=== PATIENT | female | born 1940 | race Caucasian/White ===

== ENCOUNTER 2023-08-31 16:53 | Inpatient (IN) | payer MEDICARE, MEDICAID, SELFPAY ==
[2023-08-31] VITALS (9 sets, daily range): BP systolic 105–156; BP diastolic 48–66; BMI 30.1
--- NOTE | 2023-08-31 12:54 | ED.GENMED ---
History of Present Illness
General
Chief Complaint: Abnormal Lab Value
Source: patient
Exam Limitations: none
Time Seen by Provider: 08/31/23 12:44
Nursing documentation reviewed up to this point in time: agreed with
Travel History
Have you had any contact with someone who has COVID-19?: No
Do you have any symptoms of coronavirus? Fever > 100 degrees, chills, cough, shortness of breath, sore throat, loss of taste or smell, muscle aches, or headache?: No
History of Present Illness
History of Present Illness:
Patient is an 83-year-old female with history of hypertension pka-bqfxrup-yecbmemlb diabetes migraines presents to the ER for evaluation of low sodium. 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
labs and called them last night stating her sodium was low and to come to the ER. They did not get this until today. Patient has been since for the past 3 days.
She is not on a diuretic. Denies any lower extremity swelling. She denies any chest pain shortness of breath. She follows with nephrology for labile blood pressure. Denies any urinary frequency urgency.
Review of Systems
Review of Systems
Allergies reviewed?: Yes
All Other Systems: ROS reviewed and negative except as documented in HPI and ROS
Constitutional: Reports no symptoms; Denies fever, fatigue or chills
Musculoskeletal: Reports no symptoms
Skin: Reports no symptoms
Neurological: Reports no symptoms
Psychiatric: Reports no symptoms
Phy Exam
General Physical Exam
General Presentation: no apparent distress
General age: appears stated age
General Skin: warm and dry
General Habitus: elderly
General Mental: alert
General Hydration: appears well hydrated
Cardiovascular Exam
Cardiovascular Exam: systolic murmur
Pulmonary Exam
Pulmonary Exam: lungs clear and no respiratory distress
Neurological Exam
Neurological Exam: alert
Musculoskeletal Exam
Musculoskeletal Exam: full ROM and other (no l/e swelling )
Skin Exam
Skin Exam: normal color and warm/dry
Psychiatric Exam
Psychiatric Exam: normal mood/affect
Course
Orders/Labs/Results
Orders:
Orders
08/31/23 12:54
IV Insert/Care/Rem.- Treatment PRN
08/31/23 13:01
Complete Blood Count/With Diff Urgent
Comprehensive Metabolic Panel Urgent
Osmolality, Random Urine Urgent
Date Specimen was Collected: 08/31/23
Time Specimen was Collected: 12:57
UA Reflex to Culture [Urinalysis Reflex To Culture] Urgent
Date Specimen was Collected: 08/31/23
Time Specimen was Collected: 12:57
Urine Microscopic Reflex Cult Urgent
Urine Sodium Urgent
Date Specimen was Collected: 08/31/23
Time Specimen was Collected: 12:57
Urine Culture Urgent
ADARSH Source: U
Specimen Description:
Date Specimen was Collected: 08/31/23
Time Specimen was Collected: 12:57
08/31/23 14:28
3% Sodium Chloride 250 ml [Sodium Chloride 3%] 250 ml IV ONCE
08/31/23 14:35
Electrocardiogram (*1) Stat
Reason for Study: Other
Other Reason for Exam: chest pain
EKG- Treatment ONCE
08/31/23 14:54
Add On- LAB Urgent
Tests Added?: Osmolality Random, Urine Sodium
08/31/23 Dinner
Regular
At Your Request: Limited Participation
Comment: upper sorbian speeaking
08/31/23 15:52
Admit/Transfer Patient As Directed
Co-Sign Provider:
Level of Care: Inpatient admission
Assign to:: Telemetry
Physician / Group: geronimo diallo
Diagnosis: Symptomatic hyponatremia
Reason for Telemetry: Arrhythmia
Date to Stop Telemetry: 09/03/23
Time to Stop Telemetry: 11:00
Reason for Hospitalization: Symptomatic hyponatremia
Expected length of stay greater than two midnights?: Yes
ELOS- Estimated Length of Stay in days: 3
I certify the patient meets the requirements for IP care: Yes
Code Status As Directed
Resuscitation Status: Full Code
08/31/23 16:10
CT Head W/o Iv Contrast Urgent
Comment:
Reason For Exam: hyponatremia headache
08/31/23 19:06
Acetaminophen [Tylenol] 650 mg PO Q4HPRN PRN
Enoxaparin Sodium [Lovenox] 40 mg SC QPM
08/31/23 19:06
Activity As Directed
Activity Level: With Assistance
Intake/ Output As Directed
Frequency: Per unit guidelines
Vital Signs As Directed
Frequency: Per unit guidelines
Weight As Directed
Frequency: Daily
Ot Eval And Treat Routine
Pt Eval And Treat Routine
Activity Level: As Tolerated
DX Deep Vein Thrombosis Video Routine
08/31/23 21:55
BMP [Basic Metabolic Panel] Urgent
08/31/23 22:00
Latanoprost [Xalatan Ophthalmic Solution] 1 drop BOTH EYES HS
09/01/23 05:36
Basic Metabolic Panel IN AM
Complete Blood Count/With Diff IN AM
09/01/23 08:00
Bisoprolol Fumarate [Zebeta] 5 mg PO DAILY
Ezetimibe [Zetia] 10 mg PO DAILY
Olmesartan Medoxomil [Benicar] 40 mg PO DAILY
09/02/23 07:10
Basic Metabolic Panel IN AM
Complete Blood Count/With Diff IN AM
09/03/23 11:00
DC Protocol for Telemetry ONCE
Abnormal Lab Results
08/31/23
13:01
RBC 4.16 L 10^6/uL
(4.20-5.40)
Hct 35.5 L %
(37.0-47.0)
MCH 31.7 H pg
(27.0-31.0)
MCHC 37.2 H g/dL
(33.0-37.0)
Absolute Monos (auto) 1.0 H 10^3/uL
(0.1-0.6)
Monocytes % 11.5 H %
(1.7-9.3)
Sodium 121 L mmol/L
(135-145)
Chloride 84 L mmol/L
(98-107)
BUN 29 H mg/dl
(7-17)
Glucose 115 H mg/dl
(70-99)
Leukocyte Esterase Rfl 2+ A
(Negative)
Urine Bacteria (Reflex) Few A
(Negative)
Urine Sodium 23 L mmol/L
(30-90)
08/31/23 13:01
08/31/23 13:01
Vital Signs
Initial and Last Documented VS:
Initial Vital Signs
Temp Pulse Resp BP Pulse Ox
98.4 F 61 18 107/54 98
08/31/23 11:42 08/31/23 11:42 08/31/23 11:42 08/31/23 11:42 08/31/23 11:42
Last Documented Vital Signs
Temp Pulse Resp BP Pulse Ox
97.7 F 57 16 145/55 99
09/02/23 07:38 09/02/23 07:38 09/02/23 07:38 09/02/23 07:38 09/02/23 07:38
MDM/Problems Addressed
Differential Diagnosis Includes:
Not limited to hyponatremia electrolyte abnormality
MDM/Problems Addressed:
Patient is an 83-year-old female who is followed by nephrology at [facility] for hypertension had outpatient labs done and was found to have a low sodium. Patient complains of weakness for the past several days as per daughter who is translating.
Patient is no other complaints. Sodium here is 121. Urine studies added on. Case discussed with nephrology Dr. Callahan who does recommend hypertonic saline. Patient to be admitted.
*Pulse Oximetry
Patient hypoxic: no
*EKG
Interpreted by ED Provider?: Yes
Heart Rate: 63
Rate: normal
Rhythm: sinus
Ischemia: no ischemia
*Critical Care Note
Total Time (30-74mins, 75-104mins- exclusive of procedures): Not Applicable
Patient Management
Discussion with other providers: Sweep Press Operator (nephrology, DR Callahan )
ED Attending Note
-
Portions of this chart may have been created with voice recognition software.� Occasional wrong word or��sound alike� substitutions may have occurred due to the inherent limitations of voice recognition software.
Discharge Plan
Departure
Patient Disposition: Admit
Date of Disposition: 08/31/23
Time of Disposition: 14:37
Admit to: IMU
Admit to doctor: hospitalist
Presentation/result/management discussed w/ accepting MD/DO: Hospitalist
Patient with high blood pressure during this ER visit?: No
Condition: Fair
Covid-19: Not Applicable
Discharge Problem:
Acute hyponatremia
Interventions
Interventions:
*Risk Screen - Suicide Last Done: 08/31/23 11:42
*General Assessment Last Done: 08/31/23 12:55
*Neglect/Abuse Screening Last Done: 08/31/23 11:42
*Nursing Disposition Last Done: 08/31/23 18:57
Discharge Date and Time
Discharge Date/Time: 08/31/23 18:59
[2023-08-31 13:10] LABS: % Basophils 0.9 % (0-2); % Eosinophils 1.1 % (0-6); % Immature Granulocytes 0.2 % (0-0.5); % Lymphocytes 30.6 % (20.5-51.1); % Monocytes 11.5 % (1.7-9.3); % Neutrophils 55.7 % (42.2-75.2); Absolute Basophils 0.1 10^3/uL (0-0.2); Absolute Eosinophils 0.1 10^3/uL (0-0.7); Absolute Lymphocytes 2.7 10^3/uL (1.2-3.4); Hematocrit 35.5 % (37.0-47.0); Hemoglobin 13.2 g/dL (12.0-16.0); Mean Corp Hgb Conc. 37.2 g/dL (33.0-37.0); Mean Corpuscular Hgb 31.7 pg (27.0-31.0); Mean Corpuscular Volume 85.3 fL (81.0-99.0); Mean Platelet Volume 9.1 fL (7.4-10.4); Nucleated Red Blood Cells % 0 %; Platelet Count 279 10^3/uL (130-400); Red Blood Cell Count 4.16 10^6/uL (4.20-5.40); White Blood Cell Count 8.9 10^3/uL (4.8-10.8)
[2023-08-31 13:12] LABS: Urine Albumin Negative (Neg - Trace); Urine Bilirubin Negative (Negative); Urine Character Clear (Clear); Urine Color Yellow; Urine Glucose Negative (Negative); Urine Ketone Negative (Negative); Urine Leukocyte 2+ (Negative); Urine Nitrite Negative (Negative); Urine Occult Blood Negative (Negative); Urine Specific Gravity 1.015 (<1.030); Urine Urobilinogen Negative (Neg - 1+)
[2023-08-31 13:22] LABS: ALT (SGPT) 11 U/L (0-35); AST (SGOT) 25 U/L (14-36); Albumin 4.5 g/dl (3.5-5.0); Alkaline Phosphatase 101 U/L (38-126); Blood Urea Nitrogen 29 mg/dl (7-17); Calcium 9.8 mg/dl (8.4-10.2); Carbon Dioxide 25 mmol/L (22-30); Chloride 84 mmol/L (98-107); Estimated Creatinine Clearance 43 ml/min; Glucose 115 mg/dl (70-99); Potassium 3.8 mmol/L (3.5-5.1); Sodium 121 mmol/L (135-145); Total Bilirubin 0.7 mg/dl (0.2-1.3); Total Protein 7.3 g/dl (6.3-8.2); eGFR > 60.00
[2023-08-31 13:35] LABS: Urine Mucus Few; Urine Squamous Cell 26-30 /LPF (Few)
[2023-08-31 13:37] LABS: Urine Bacteria Few (Negative); Urine Red Blood Cell 0-2 /HPF (0-2)
--- NOTE | 2023-08-31 14:56 | W.CON.NEPH ---
Consultation
-
Date/Time Consultation Requested: 08/31/2023 2:22PM
Date/Time Consultation Performed: 08/31/2023 4:30PM
Requesting Provider: Sol Ospina
Performing Provider: Martha Callahan
Reason for Consultation: hyponatremia
Medical History
-
Chief Complaint: hyponatremia
History of Present Illness:
Ms. Castro is an 83YOF with PMH of HTN, prediabetes, DLD who presents to the hospital for hyponatremia found on outpatient labs.
She was instructed to get labs on Friday, Na resulted at 124. She is 121 in our ED.
It appears that the patient has been struggling with labile blood pressures recently. She does see a air motor repairer at [facility], unclear of what her name is. Her current regimen is olmesartan-HCTZ, bisoprolol and clonidine patch was prescribed but not
initiated. She has never heard that she has low sodium previously. She struggles with migraines, takes excedrin for that, trying to wean off as able. She is taking tylenol. No heavy NSAID usage. States that she was eating a bit less because of her
tooth crown that was dislodged, now replaced and eating is back to normal. Drinks about 1L of water/day but also has some tea as well.
Endorses weakness over the past few days.
Denies nausea, vomiting, diarrhea, recent illnesses.
Past Medical History
HTN
DLD
pre-diabetes
Past Medical History: Other
Past Surgical History: None
Social History
Tobacco: Non-Smoker
Alcohol: Occasional
Drug: None
Living: With Family
Family History
Family History: Not Pertinent
Allergies / Home Medications
Allergy/AdvReac Type Severity Reaction Status Date / Time
No Known Allergies Allergy Unverified 08/31/23 11:45
�Medication �Instructions �Recorded �Confirmed �Type
bisoprolol fumarate 5 mg tablet 5 mg PO DAILY 08/31/23 08/31/23 History
ezetimibe 10 mg tablet 10 mg PO DAILY 08/31/23 08/31/23 History
latanoprost 0.005 % eye drops 1 drp BOTH EYES HS 08/31/23 08/31/23 History
magnesium 1 tab PO HS 08/31/23 08/31/23 History
olmesartan 40 1 tab PO HS 08/31/23 08/31/23 History
mg-hydrochlorothiazide 25 mg tablet
Review of Systems
-
History Source: Patient and Family
All other systems: Negative unless noted
Constitutional: Fatigue
Respiratory: Cough (persistent, not new)
Neurological: Weakness
Physical Exam
Vital Signs
Vital Signs
Temp Pulse Resp BP Pulse Ox
98.4 F 61 15 105/62 96
08/31/23 11:42 08/31/23 13:30 08/31/23 13:30 08/31/23 13:00 08/31/23 13:30
Lab Results
WBC 8.9 10^3/uL (4.8-10.8) 08/31/23 13:01
RBC 4.16 10^6/uL (4.20-5.40) L 08/31/23 13:01
Hgb 13.2 g/dL (12.0-16.0) 08/31/23 13:01
Hct 35.5 % (37.0-47.0) L 08/31/23 13:01
Plt Count 279 10^3/uL (130-400) 08/31/23 13:01
Sodium 121 mmol/L (135-145) L 08/31/23 13:01
Potassium 3.8 mmol/L (3.5-5.1) 08/31/23 13:01
Chloride 84 mmol/L (98-107) L 08/31/23 13:01
Carbon Dioxide 25 mmol/L (22-30) 08/31/23 13:01
BUN 29 mg/dl (7-17) H 08/31/23 13:
Creatinine 0.8 mg/dL (0.6-1.0) 08/31/23 13:
eGFR > 60.00 08/31/23 13:
Glucose 115 mg/dl (70-99) H 08/31/23 13:
Calcium 9.8 mg/dl (8.4-10.2) 08/31/23 13:
Albumin 4.5 g/dl (3.5-5.0) 08/31/23 13:
Physical Exam
General: AOx3, No Distress and Nontoxic
HEENT: PERRL, EOMI, Anicteric, Conjunctivae Clear, Ear/Nose Intact and Hearing Normal
Respiratory: Clear
Cardiac: S1/S2, Regular Rate/Rhythm, Murmur and No Edema
Breast: Deferred by me
Abdomen: Soft, Nontender, Nondistended, Normal Bowel Sounds and No Hepatosplenomegaly
Rectal: Deferred by Provider
Genito-urinary: No Costovertebral Tender
Musculoskeletal: No Clubbing, No Cyanosis and No Edema
Skin: No Rash, Warm, Dry, No Clubbing and No Bruising
Neuro: Nonfocal/Grossly Intact
Psych: Mood/afflect pleasant and Insight/judgement good
Data Reviewed
-
Radiology: Other (no imaging obtained)
Labs: Labs Reviewed by me, Discussed with Physician and Discussed with Family
Old Records: Reviewed
Assessment/Plan
-
Assessment:
hyponatremia
migraines
hypertension, labile
DLD
Plan:
- hyponatremia workup in progress. ddx: SIADH +/- medication induced
- initiate the patient on 3% saline at 30cc/hr. goal sodium at 127-129 by tomorrow afternoon
- please obtain urine sodium and urine osm
- avoid further excedrin
- hold HCTZ for blood pressure
- monitor blood pressures while she is here. i am not sure if her cuff at home is accurate. if blood pressures are labile, could consider secondary hypertension workup.
[2023-08-31] MEDS: SODIUM CHLORIDE 3% 250 IV (14:58)
[2023-08-31 15:19] LABS: Osmolality Urine 443 mOsm/kg (300-900)
[2023-08-31 15:28] LABS: Urine Sodium 23 mmol/L (30-90)
--- NOTE | 2023-08-31 15:32 | HPS.HSE ---
Addendum entered and electronically signed by Viji Levin MD 08/31/23 16:35:
pt seen and examined independently--agree with GEOSCIENCES ASSOCIATE PROFESSOR note
GENERAL: well developed, well nourished, female in no apparent distress
HEENT: NC/AT
HEART: regular rate and rhythm, +S1, +S2
LUNGS : clear to auscultation bilaterally
ABDOM: soft, nontender, nondistended, + bowel sounds
EXT: no cyanosis, clubbing, or edema
NEUROLOGIC: grossly intact--speaks Croatian
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
urine Osmo--Hold Excedrin prn--Hold HCTZ--Follow BMP will check at 10 PM and a.m.
Renal insuff ? 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
HTN-benign--Hold HCTZ due to hyponatremia--Continue olmesartan 40 mg , bisoprolol 5 mg daily with hold parameters--Patient follows with nephrology at [facility] for hypertension management
HLD-Continue ezetimibe 10 mg daily
Migraine history--Prior daily headaches now currently 3-4 times a week after Botox shots--Hold Excedrin as needed--Getting Botox x 1 year last dose was July 2023--Continue Tylenol as needed
DVT prophylaxis--Subcu Lovenox
Code status --Full code
Original Note:
Family Physician
-
Family Physician: Reji Collins
Chief Complaint
-
Weakness x 3 days
History of Present Illness
83-year-old Croatian-speaking female with her daughter who is at bedside translating who states for the past 3 days she has been complaining of weakness and labile blood pressure with systolic as low as 109 and as high as 158. She had labs ordered
by her solid glass rod dowel machine operator at [facility] and was called today with low sodium and advised to come to the emergency room. Her sodium was noted to be 121. She has been taking hydrochlorothiazide for her blood pressure and occasional as needed
Excedrin for migraines. She drinks approximately 1 L of fluids a day. Her daughter Morena reports her mother feels off balance with her chronic headaches, but denies blurred vision, nausea, vomiting, diarrhea, abdominal pain, chest pain,
palpitations, shortness of breath, urinary symptoms.
PMH HTN, prediabetes, migraines treated with Botox for the past year.
Medical History
Past Medical History
Past Medical History: Reports Other
Additional Past Medical History:
HTN,
prediabetes
migraines treated with Botox for the past yea
Past Surgical History: Reports Other
Additional Past Surgical History:
Right knee replacement
Social History
Tobacco: Non-smoker
Alcohol: None
Drug: None
Personal: Single
Living: With Family
Employment: Retired
Family History
Family History: Not pertinent
Allergies / Home Medications
Allergies reflects when Allergies were last updated in [facility].
Home Medications with original date entered in [facility]
Allergy/Medication List:
Allergies
Allergy/AdvReac Type Severity Reaction Status Date / Time
No Known Allergies Allergy Unverified 08/31/23 11:45
Home Medications
Excedrin Migraine 1 tab PO DAILY PRN migraine 08/31/23
bisoprolol fumarate 5 mg tablet 5 mg PO DAILY 08/31/23
ezetimibe 10 mg tablet 10 mg PO DAILY 08/31/23
latanoprost 0.005 % eye drops 1 drp BOTH EYES HS 08/31/23
magnesium 1 tab PO HS 08/31/23
olmesartan 40 mg-hydrochlorothiazide 25 mg tablet 1 tab PO HS 08/31/23
Review of Systems
-
History Source: Patient and Family (daughter Morena)
A 12 point ROS was completed and negative except as noted: Yes
Constitutional: Denies Fever, Fatigue or Chills
EENT: Denies Sore Throat or Runny Nose
Respiratory: Denies Cough or Trouble Breathing
Cardiac: Denies Chest Pain, Diaphoresis, Palpitations or Syncope
Abdomen/GI: Denies Abdominal Pain, Nausea, Vomiting, Diarrhea, Constipated, Bloody Stools or Black Stools
: Denies Dysuria, Frequency, Flank Pain, Incontinence, Difficulty Voiding or Urgency
Musculoskeletal: Denies Joint Pain or Edema
Skin: Denies Itching or Rash
Neurological: Reports Headache and Other (Daughter reports feels off balance); Denies Dizzy, Weakness or Numbness
Endocrine: Reports No Symptoms
Hematologic/Lymphatic: Reports No Symptoms
Psych: Reports Calm
Physical Exam
Vital Signs
Vital Signs
Temp Pulse Resp BP Pulse Ox
98.4 F 63 17 156/62 95
08/31/23 11:42 08/31/23 15:00 08/31/23 15:00 08/31/23 15:00 08/31/23 15:00
Physical Exam
General: Comfortable and Conversant; No Pain, Fever or Chills
HEENT: NormoCephalic, Anicteric, Moist mucous membranes, PERRLA, [place] Conjunctivae and No Ptosis
Respiratory: Clear; No Wheezes, Rales or Rhonchi
Cardiac: S1/S2 and Regular Rhythm; No Murmur, Rub, Gallop or Peripheral Edema
GI: Soft, Non Tender, Non Distended, Normal Bowel Sounds and No Hepatosplenomegaly
Rectal: Deferred by Provider
Genito-urinary: Deferred by me
Musculoskeletal: No Clubbing, No Cyanosis and No Edema
Skin: Warm and Dry; No Rash
Neuro: AO x 3 (Per daughter at bedside translating), No Motor Deficits, Nonfocal/grossly intact and No Sensory Deficits; No Slurred Speech, Facial Droop or Tremors
Psych: Calm
Laboratory Results
-
08/31/23 13:01
08/31/23 13:01
Laboratory Results
Total Bilirubin 0.7 mg/dl (0.2-1.3) 08/31/23 13:01
AST 25 U/L (14-36) 08/31/23 13:01
ALT 11 U/L (0-35) 08/31/23 13:01
Alkaline Phosphatase 101 U/L (38-126) 08/31/23 13:01
Data Reviewed
-
Lab Data: Labs Reviewed by me
Impression/Plan
-
Impression/plan:
Admit to telemetry
#Acute hyponatremia concern for SIADH/medication induced
NA 121
-Consult nephrology seen by Dr. CONROY at bedside
-Check urine NA, urine Osmo
-3% saline at 30 cc goal NA 127�129 by tomorrow afternoon
-Hold Excedrin prn
-Hold HCTZ
-Follow BMP will check at 10 PM and a.m.
-Check CT head
#Renal insuff ? CKD 3B
- creat 0.8 crcl 43-no prior baseline labs
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
#HTN-benign
-Hold HCTZ due to hyponatremia
-Monitor BP
-Continue olmesartan 40 mg , bisoprolol 5 mg daily with hold parameters
-Patient follows with nephrology at [facility] for hypertension management
#HLD
-Continue ezetimibe 10 mg daily
#Migraine history
Prior daily headaches now currently 3-4 times a week after Botox shots
-Hold Excedrin as needed
-Getting Botox x 1 year last dose was July 2023
-Continue Tylenol as needed
DVT prophylaxis
Subcu Lovenox
Full code
--- NOTE | 2023-08-31 19:10 | PTCARENOTE ---
Received pt from ED via stretcher. Pt ambulated to bed x1. Daughter at bedside and assisted with admission questions. Pt primarily Bahraini speaking. AAOx3. VSS. Assessed and oriented to room. Pt verbalized understanding of call smith. Call smith
within close reach. Will continue to monitor.
[2023-08-31] MEDS: LOVENOX 40 MG SC (19:53)
[2023-08-31] MEDS: XALATAN OPHTHALMIC SOLUTION 1 DROP BOTH EYES (21:51)
[2023-08-31 22:24] LABS: Blood Urea Nitrogen 21 mg/dl (7-17); Carbon Dioxide 22 mmol/L (22-30); Chloride 98 mmol/L (98-107); Estimated Creatinine Clearance 49 ml/min; Glucose 111 mg/dl (70-99); Potassium 3.1 mmol/L (3.5-5.1); Sodium 129 mmol/L (135-145); eGFR > 60.00
[2023-09-01] VITALS (8 sets, daily range): BP systolic 129–176; BP diastolic 42–79; PULSE 56–62; O2SAT 97
[2023-09-01 06:55] LABS: % Eosinophils 3.3 % (0-6); % Immature Granulocytes 0.3 % (0-0.5); % Lymphocytes 38.4 % (20.5-51.1); % Monocytes 13.1 % (1.7-9.3); % Neutrophils 43.9 % (42.2-75.2); Absolute Basophils 0.1 10^3/uL (0-0.2); Absolute Eosinophils 0.2 10^3/uL (0-0.7); Absolute Lymphocytes 2.4 10^3/uL (1.2-3.4); Absolute Monocytes 0.8 10^3/uL (0.1-0.6); Absolute Neutrophils 2.7 10^3/uL (1.4-6.5); Hemoglobin 12.2 g/dL (12.0-16.0); Mean Corp Hgb Conc. 35.9 g/dL (33.0-37.0); Mean Corpuscular Hgb 31.6 pg (27.0-31.0); Mean Corpuscular Volume 88.1 fL (81.0-99.0); Mean Platelet Volume 9.5 fL (7.4-10.4); Nucleated Red Blood Cells % 0 %; Platelet Count 258 10^3/uL (130-400); Red Blood Cell Count 3.86 10^6/uL (4.20-5.40); Red Cell Dist. Width 13.2 % (11.5-14.5); White Blood Cell Count 6.1 10^3/uL (4.8-10.8)
[2023-09-01 07:43] LABS: Blood Urea Nitrogen 21 mg/dl (7-17); Calcium 9.5 mg/dl (8.4-10.2); Carbon Dioxide 23 mmol/L (22-30); Chloride 93 mmol/L (98-107); Estimated Creatinine Clearance 49 ml/min; Glucose 106 mg/dl (70-99); Potassium 3.9 mmol/L (3.5-5.1); Sodium 126 mmol/L (135-145); eGFR > 60.00
[2023-09-01] MEDS: BENICAR 40 MG PO (07:49)
[2023-09-01] MEDS: ZETIA 10 MG PO (07:49)
[2023-09-01] MEDS: ZEBETA 5 MG PO (07:49)
--- NOTE | 2023-09-01 14:00 | W.PN.NEPH.PH ---
Today's Communication / Plan
-
3% saline again today
Assessment/Plan
-
Assessment:
hyponatremia
migraines
hypertension, labile
DLD
Plan:
- hyponatremia workup in progress. ddx: SIADH +/- medication induced
-sodium better to 129 but down to 126 this am
will resume 3% saline and follow sodium
U osmo is high at 443, U na low 23 some prerenal componenet too
- avoid further excedrin
BP stable on ARB, BB, hold HCTZ at d/c
d/w pt
-
-
Date of Service: September 01, 2023
CC / HPI / ROS
-
Chief Complaint:
hyponatremia
History of Present Illness:
sdoium better at 129 overnight but at 126 this am
bp stable, no fever
Review of Systems:
appetite is better
c/o dizziness but improving
Labs
-
Labs:
WBC 6.1 10^3/uL (4.8-10.8) 09/01/23 05:36
RBC 3.86 10^6/uL (4.20-5.40) L 09/01/23 05:36
Hgb 12.2 g/dL (12.0-16.0) 09/01/23 05:36
Hct 34.0 % (37.0-47.0) L 09/01/23 05:36
Plt Count 258 10^3/uL (130-400) 09/01/23 05:36
Sodium 126 mmol/L (135-145) L 09/01/23 05:36
Potassium 3.9 mmol/L (3.5-5.1) D 09/01/23 05:36
Chloride 93 mmol/L (98-107) L 09/01/23 05:36
Carbon Dioxide 23 mmol/L (22-30) 09/01/23 05:36
BUN 21 mg/dl (7-17) H 09/01/23 05:36
Creatinine 0.7 mg/dL (0.6-1.0) 09/01/23 05:36
eGFR > 60.00 09/01/23 05:36
Glucose 106 mg/dl (70-99) H 09/01/23 05:36
Calcium 9.5 mg/dl (8.4-10.2) 09/01/23 05:36
Albumin 4.5 g/dl (3.5-5.0) 08/31/23 13:01
Physical Exam
-
Vital Signs:
Vital Signs
Temp Pulse Resp BP Pulse Ox
97.8 F 59 18 135/54 99
09/01/23 11:00 09/01/23 11:00 09/01/23 11:00 09/01/23 11:00 09/01/23 11:00
Cardiovascular:: Regular rate and rhythm
Respiratory:: Bilateral: CTA
Lung Excursion:: Normal
Abdomen:: Nontender and Soft
Extremity Edema:: None: Bilateral:
Pimentel Catheter: No
[2023-09-01] MEDS: SODIUM CHLORIDE 3% 250 IV (14:56)
[2023-09-01 15:24] LABS: Sodium 124 mmol/L (135-145)
--- NOTE | 2023-09-01 15:37 | CM ---
Reviewed chart, spoke with patient's granddaughter to obtain information for assessment as patient speaks Lebanese. Patient's granddaughter stated that patient lives with her daughter in a two story home with one steps to enter. Her daughter assists
patient with all of her ADLs, personal care, dressing, bathing and patient uses a walker to assist with her ambulation.
Patient's daughter does all the cobol engineer, cooking, cleaning and laundry. She provides
transportation for patient to get to her appointments and she does all the shopping.
Patient has not had VN services. She was in a SNF in the past at [facility].
Patient has a prescription plan and uses, [facility] on [address]
Her PCP is, Zoila Collins.
Patient's granddaughter stated that patient's daughter has been taking care of patient for a long time and she can accommodate the scope of her needs. She relayed that she feels that patient would want to come home when medically stable for
discharge.
Plan: Case management will continue to follow and assist with discharge planning. Tentative plan is for home when medically cleared.
[2023-09-01] MEDS: LOVENOX 40 MG SC (17:40)
--- NOTE | 2023-09-01 18:05 | W.PN.HOSP.TC ---
Today's Communication/Plan
-
Hypertonic solution.
Assessment / Plan
Assessment / Plan
Impression:
Symptomatic hyponatremia sodium level 121 upon presentation.
Essential hypertension with reported labile blood pressure
Plan:
Symptomatic hyponatremia with sodium level 121 upon presentation
Suspect component of SIADH given relatively elevated urine osmolarity at 443 as well as prerenal with low sodium at 23.
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
Hold HCTZ
Sodium improved at 126, although dropped from 129 over the last night
Continue 3% solution. Follow serial BMP.
Essential hypertension
Reported labile BP.
Hold HCTZ.
Continue ARB/beta-qiana monitor blood pressure trend over the next 24 hours.
Discussed with patient's daughter at the bedside.
Anticipated Discharge: 24 - 48 hours
Subjective/Interval History
-
Date of Service: September 01, 2023
Objective Data
-
Labs:
Laboratory Results
09/01/23 09/01/23 09/01/23
05:36 14:42 22:03
WBC 6.1
Hgb 12.2
Hct 34.0 L
Plt Count 258
Sodium 126 L 124 L Pending
Potassium 3.9 D
Chloride 93 L
Carbon Dioxide 23
BUN 21 H
Creatinine 0.7
Glucose 106 H
Calcium 9.5
Vital Signs:
Vital Signs
Temp Pulse Resp BP Pulse Ox
97.7 F 62 18 144/50 96
09/01/23 15:00 09/01/23 15:00 09/01/23 15:00 09/01/23 15:00 09/01/23 15:00
I&O
08/31/23 09/01/23 09/02/23
06:59 06:59 06:59
Intake Total 480 / 480 630 / 630
Balance 480 / 480 630 / 630
Physical Exam
-
General: Well Developed and No Apparent Distress
HEENT: Normocephalic, Atraumatic and Moist Mucous Membranes
Respiratory: Clear to Auscultation
Cardiac: Regular Rhythm and S1/S2; Negative Murmur, Rub or Gallop
GI: Soft, Nontender, Nondistended and Normal Bowel Sounds; Negative Organomegaly
Rectal: Deferred by Provider
Musculoskeletal: No Clubbing, No Cyanosis and No Edema
Skin: Negative Rash
Neuro: Nonfocal/Grossly Intact
[2023-09-01] MEDS: XALATAN OPHTHALMIC SOLUTION 1 DROP BOTH EYES (21:25)
[2023-09-01 22:19] LABS: Sodium 127 mmol/L (135-145)
[2023-09-02 03:06] VITALS: BP 113/43
[2023-09-02 06:00] VITALS: BMI 27.3
[2023-09-02] MEDS: ZETIA 10 MG PO (07:22)
[2023-09-02] MEDS: BENICAR 40 MG PO (07:22)
[2023-09-02] MEDS: ZEBETA PO (07:23)
[2023-09-02 07:38] VITALS: BP 145/55
[2023-09-02 08:01] LABS: % Basophils 1.2 % (0-2); % Immature Granulocytes 0.3 % (0-0.5); % Neutrophils 39.5 % (42.2-75.2); Absolute Basophils 0.1 10^3/uL (0-0.2); Absolute Eosinophils 0.2 10^3/uL (0-0.7); Absolute Lymphocytes 2.5 10^3/uL (1.2-3.4); Absolute Monocytes 0.8 10^3/uL (0.1-0.6); Absolute Neutrophils 2.4 10^3/uL (1.4-6.5); Hematocrit 37.1 % (37.0-47.0); Hemoglobin 12.8 g/dL (12.0-16.0); Mean Corp Hgb Conc. 34.5 g/dL (33.0-37.0); Mean Corpuscular Hgb 31.1 pg (27.0-31.0); Mean Corpuscular Volume 90.3 fL (81.0-99.0); Mean Platelet Volume 9.3 fL (7.4-10.4); Nucleated Red Blood Cells % 0 %; Platelet Count 266 10^3/uL (130-400); Red Blood Cell Count 4.11 10^6/uL (4.20-5.40); Red Cell Dist. Width 13.3 % (11.5-14.5)
[2023-09-02 08:29] LABS: Blood Urea Nitrogen 15 mg/dl (7-17); Calcium 9.7 mg/dl (8.4-10.2); Carbon Dioxide 24 mmol/L (22-30); Chloride 95 mmol/L (98-107); Estimated Creatinine Clearance 54 ml/min; Glucose 136 mg/dl (70-99); Potassium 4.4 mmol/L (3.5-5.1); Sodium 130 mmol/L (135-145); eGFR > 60.00
[2023-09-02 11:07] VITALS: BP 159/50
--- NOTE | 2023-09-02 14:24 | W.PN.NEPH.PH ---
Today's Communication / Plan
-
see plan
Assessment/Plan
-
Assessment:
hyponatremia
migraines
hypertension, labile
DLD
Plan:
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
-sodium better to 130 with 3% saline
U osmo is high at 443, U na low 23 some prerenal componenet too
- avoid further excedrin
BP suboptimal on ARB, BB, hold HCTZ at d/c
BB dose titration limited by HR 50-60s
daughter reports had gum swelling with Amlodipine hence will start hydralazine
check sodium now if stable ok for d/c
BMP in 2days with PCP after d/c
would cont FR 48 ounces/day
d/w pt and family at bedside
she will follow nephro at [facility] [place]
-
-
Date of Service: September 02, 2023
CC / HPI / ROS
-
Chief Complaint:
hyponatremia
History of Present Illness:
sdoium better at 130 s/p 3% saline
bp high, no fever
Review of Systems:
appetite is better
no dizziness
no nv/. no cp or sob
Labs
-
Labs:
WBC 6.0 10^3/uL (4.8-10.8) 09/02/23 07:10
RBC 4.11 10^6/uL (4.20-5.40) L 09/02/23 07:10
Hgb 12.8 g/dL (12.0-16.0) 09/02/23 07:10
Hct 37.1 % (37.0-47.0) 09/02/23 07:10
Plt Count 266 10^3/uL (130-400) 09/02/23 07:10
Sodium 130 mmol/L (135-145) L 09/02/23 07:10
Potassium 4.4 mmol/L (3.5-5.1) 09/02/23 07:10
Chloride 95 mmol/L (98-107) L 09/02/23 07:10
Carbon Dioxide 24 mmol/L (22-30) 09/02/23 07:10
BUN 15 mg/dl (7-17) 09/02/23 07:10
Creatinine 0.6 mg/dL (0.6-1.0) 09/02/23 07:10
eGFR > 60.00 09/02/23 07:10
Glucose 136 mg/dl (70-99) H 09/02/23 07:10
Calcium 9.7 mg/dl (8.4-10.2) 09/02/23 07:10
Albumin 4.5 g/dl (3.5-5.0) 08/31/23 13:01
Physical Exam
-
Vital Signs:
Vital Signs
Temp Pulse Resp BP Pulse Ox
98.2 F 66 16 159/50 98
09/02/23 11:07 09/02/23 11:07 09/02/23 11:07 09/02/23 11:07 09/02/23 11:07
Cardiovascular:: Regular rate and rhythm
Respiratory:: Bilateral: CTA
Lung Excursion:: Normal
Abdomen:: Nontender and Soft
Extremity Edema:: None: Bilateral:
Pimentel Catheter: No
[2023-09-02 15:06] VITALS: BP 161/69
[2023-09-02 15:30] LABS: Sodium 127 mmol/L (135-145)
--- NOTE | 2023-09-02 16:34 | W.PN.HOSP.TC ---
Today's Communication/Plan
-
[place]
Continue free water restriction
Monitor BP trend
Assessment / Plan
Assessment / Plan
Impression:
Symptomatic hyponatremia sodium level 121 upon presentation.
Essential hypertension with reported labile blood pressure
Plan:
Symptomatic hyponatremia with sodium level 121 upon presentation
Suspect component of SIADH given relatively elevated urine osmolarity at 443 as well as prerenal with low sodium at 23.
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
Hold HCTZ
Status post 3% solution.
Sodium improved 130 and fluctuated down to 127
Consider Samsca
Continue free water restriction
Essential hypertension
Reported labile BP.
Hold HCTZ.
Continue ARB/beta-qiana monitor blood pressure trend over the next 24 hours.
Add low-dose of hydralazine
Discussed with patient's daughter at the bedside.
Anticipated Discharge: 24 - 48 hours
Subjective/Interval History
-
Date of Service: September 02, 2023
Objective Data
-
Labs:
Laboratory Results
09/02/23 09/02/23
07:10 15:08
WBC 6.0
Hgb 12.8
Hct 37.1
Plt Count 266
Sodium 130 L 127 L
Potassium 4.4
Chloride 95 L
Carbon Dioxide 24
BUN 15
Creatinine 0.6
Glucose 136 H
Calcium 9.7
Vital Signs:
Vital Signs
Temp Pulse Resp BP Pulse Ox
98.4 F 70 20 161/69 96
09/02/23 15:06 09/02/23 15:06 09/02/23 15:06 09/02/23 15:06 09/02/23 15:06
I&O
09/01/23 09/02/23 09/03/23
06:59 06:59 06:59
Intake Total 480 / 480 750 / 750
Balance 480 / 480 750 / 750
Physical Exam
-
General: Well Developed and No Apparent Distress
HEENT: Normocephalic, Atraumatic and Moist Mucous Membranes
Respiratory: Clear to Auscultation
Cardiac: Regular Rhythm and S1/S2; Negative Murmur, Rub or Gallop
GI: Soft, Nontender, Nondistended and Normal Bowel Sounds; Negative Organomegaly
Rectal: Deferred by Provider
Musculoskeletal: No Clubbing, No Cyanosis and No Edema
Skin: Negative Rash
Neuro: Nonfocal/Grossly Intact
[2023-09-02] MEDS: LOVENOX 40 MG SC (16:51)
[2023-09-02] MEDS: SAMSCA 15 MG PO (16:52)
[2023-09-02 19:00] VITALS: BP 179/74
[2023-09-02] MEDS: TYLENOL 650 MG PO (19:34)
[2023-09-02] MEDS: APRESOLINE 10 MG PO (19:35)
[2023-09-02] MEDS: XALATAN OPHTHALMIC SOLUTION 1 DROP BOTH EYES (20:41)
--- NOTE | 2023-09-02 22:01 | VATNOTE ---
pt has no no IV needs and does NOT want to re restuck for IV site due to telemetry parameters. Pt wishes honored and PCN aware.
[2023-09-02 23:00] VITALS: BP 128/59
[2023-09-03 03:00] VITALS: BP 120/49
[2023-09-03 06:00] VITALS: BMI 27.0
[2023-09-03 07:00] VITALS: BP 140/64
[2023-09-03] MEDS: APRESOLINE 10 MG PO (08:18)
[2023-09-03] MEDS: BENICAR 40 MG PO (08:18)
[2023-09-03] MEDS: ZETIA 10 MG PO (08:19)
[2023-09-03] MEDS: ZEBETA 5 MG PO (08:19)
[2023-09-03 08:30] LABS: Blood Urea Nitrogen 13 mg/dl (7-17); Calcium 10.2 mg/dl (8.4-10.2); Carbon Dioxide 27 mmol/L (22-30); Chloride 100 mmol/L (98-107); Estimated Creatinine Clearance 54 ml/min; Glucose 124 mg/dl (70-99); Sodium 135 mmol/L (135-145); eGFR > 60.00
[2023-09-03 11:00] VITALS: BP 140/58
--- NOTE | 2023-09-03 11:07 | W.PN.NEPH.PH ---
Today's Communication / Plan
-
no HCTZ
Assessment/Plan
-
Assessment:
hyponatremia
migraines
hypertension, labile
DLD
Plan:
BMP next week
f/u OP neph HUP
no HCTZ
continue hydralazine in its place
goal SBP ~140 given age
ok for dc from renal standpoint
-
-
Date of Service: September 03, 2023
CC / HPI / ROS
-
Chief Complaint:
hyponatremia
History of Present Illness:
sdoium better at 135
BP stable
K ok
Review of Systems:
appetite is better
no dizziness
no nv, no cp or sob
Labs
-
Labs:
WBC 6.0 10^3/uL (4.8-10.8) 09/02/23 07:10
RBC 4.11 10^6/uL (4.20-5.40) L 09/02/23 07:10
Hgb 12.8 g/dL (12.0-16.0) 09/02/23 07:10
Hct 37.1 % (37.0-47.0) 09/02/23 07:10
Plt Count 266 10^3/uL (130-400) 09/02/23 07:10
Sodium 135 mmol/L (135-145) D 09/03/23 07:08
Potassium 5.0 mmol/L (3.5-5.1) 09/03/23 07:08
Chloride 100 mmol/L (98-107) 09/03/23 07:08
Carbon Dioxide 27 mmol/L (22-30) 09/03/23 07:08
BUN 13 mg/dl (7-17) 09/03/23 07:08
Creatinine 0.6 mg/dL (0.6-1.0) 09/03/23 07:08
eGFR > 60.00 09/03/23 07:08
Glucose 124 mg/dl (70-99) H 09/03/23 07:08
Calcium 10.2 mg/dl (8.4-10.2) 09/03/23 07:08
Albumin 4.5 g/dl (3.5-5.0) 08/31/23 13:01
Physical Exam
-
Vital Signs:
Vital Signs
Temp Pulse Resp BP Pulse Ox
97.8 F 63 16 140/64 95
09/03/23 07:00 09/03/23 08:18 09/03/23 07:00 09/03/23 08:18 09/03/23 07:00
Cardiovascular:: Regular rate and rhythm
Respiratory:: Bilateral: Coarse
Lung Excursion:: Normal
Abdomen:: Nontender and Soft
Bowel Sounds:: Normal
Extremity Edema:: None: Bilateral:
[2023-09-03 12:07] VITALS: BP 142/52; BP 176/79; PULSE 56; PULSE 62; O2SAT 97
--- NOTE | 2023-09-03 14:07 | W.DS.TRANS ---
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
-
Discharge Instructions:
Discharge Diagnosis/Procedures Hyponatremia
Diet Regular
Blood Work BMP in one week
Instructions:
Stand-Alone Forms:
Changes to Home Medications: Yes
Discharge Medications:
DC Medications w/original date entered in [facility]
bisoprolol fumarate 5 mg tablet 5 mg PO DAILY Blood Pressure 08/31/23
ezetimibe 10 mg tablet 10 mg PO DAILY High Cholesterol 08/31/23
latanoprost 0.005 % eye drops 1 drp BOTH EYES HS Eye Condition 08/31/23
magnesium 1 tab PO HS Electrolyte Repletion 08/31/23
hydralazine 10 mg tablet 10 mg PO BID #60 tabs 09/03/23
olmesartan 20 mg tablet 40 mg (2 x 20 mg) PO DAILY #30 tabs 09/03/23
Home Medication Changes
HCTZ stopped
Hydralazine initiated
Pending Results: No
--- NOTE | 2023-09-03 14:54 | CM ---
Patient seen at bedside. Patient is for discharge today and does not understand sinhala. CM called to patient granddaughter, VM left for granddaughter regarding transportation, and IMM. CM will continue to follow for discharge planning needs.
Plan; home with family pending Confirmation of needs.
[2023-09-03 16:19] VITALS: BP 115/55
--- NOTE | 2023-09-03 17:35 | PTCARENOTE ---
this RN called the pts vikash Puckett and the pts vikash is on her way to pick the pt up, the pts vikash was notified that the pt will be in the discharge lounge in the main lobby, pathology specialist at the bedside going over discharge
instructions with this RN and Marely COLE
== END 2023-09-03 17:45 | disposition home or self-care (01) | DRG 645 ==
LOC: 3 WEST ACU 16:53
PROVIDERS: Clinical Nurse Specialist Family Health; Internal Medicine; Nurse Practitioner; ADMITTING PHYSICIAN Internal Medicine; ATTENDING PHYSICIAN Internal Medicine; EMERGENCY PHYSICIAN Emergency Medicine; FAMILY PHYSICIAN Internal Medicine; OTHER PHYSICIAN Student in an Organized Health Care Education/Training Program
DX: E22.2 Syndrome of inappropriate secretion of antidiuretic hormone (principal); E11.9 Type 2 diabetes mellitus without complications; I12.9 Hypertensive chronic kidney disease with stage 1 through stage 4 chronic kidney disease, or unspecified chronic kidney disease; N18.32 Chronic kidney disease, stage 3b; Z79.84 Long term (current) use of oral hypoglycemic drugs
CPT/HCPCS: 70450; 80048; 80053; 81003; 81015; 83935; 84295; 84300; 85025; 87086; 93005; 97116; 97162; 97166; 97535; 99285